=== PATIENT | male | born 1980 | race Two or more races ===

== ENCOUNTER 2023-02-03 00:42 | Emergency (ER) | payer OTHER ==
[~2023-02-03] VITALS: Ht 167.6 cm; Wt 95.3 kg
[2023-02-03 00:43] VITALS: BP 175/80
[2023-02-03] MEDS ORDERED: CHLO25CA22 PO (00:52)
[2023-02-03] MEDS ORDERED: CHLORDIAZEPOXIDE HCL 25 MG CAPSULE ONE (00:56)
[2023-02-03] MEDS ORDERED: CHLORDIAZEPOXIDE HCL 25 MG CAPSULE PO ONE (01:00)
== END 2023-02-03 01:09 | disposition home or self-care (01) ==
LOC: ER 00:44
DX: F10.239 Alcohol dependence with withdrawal, unspecified (principal)